=== PATIENT | female | born 1985 | race Asian ===

== ENCOUNTER 2018-12-01 09:07 | Outpatient (CLI) | payer BC ==
--- NOTE | 2018-12-01 10:18 | ULT ---
ABDOMINAL ULTRASOUND HISTORY: Hydronephrosis FINDINGS: Liver: Within normal limits. Gallbladder: No gallbladder calculi are visualized. There is no gallbladder wall thickening or perich olecystic fluid. Common duct: Common duct is normal in caliber measuring 0.4 cm in diameter. Pancreas: The limited visualized pancreas demonstrates a normal sonographic appearance. IVC: Limited visualized IVC has a normal sonographic appearance. Aorta: Portions of the abdominal aorta are obscured due to shadowing from bowel gas, the visualized p ortions of the abdominal aorta are normal in caliber. Spleen: Within normal limits. Kidneys: Kidneys demonstrate a normal sonographic appearance bilaterally with the right kidney measur ing 10.5 cm in length, and the left kidney measures 10.2 cm in length. IMPRESSION: Abdominal ultrasound is within normal limits. No gallbladder calculi are seen.
== END 2018-12-01 09:08 | disposition home or self-care (01) ==
LOC: SCSULT 09:07
PROVIDERS: ATTEND Family Medicine
DX: N13.30 Unspecified hydronephrosis (principal)
CPT/HCPCS: 76700